=== PATIENT | female | born 1945 | race Caucasian/White ===

== ENCOUNTER 2025-03-09 16:39 | Inpatient (IN) | payer MEDICARE, SELFPAY ==
[2025-03-09 16:41] VITALS: BP 161/123; PULSE 103; RESP 18; TEMP 36.4; O2SAT 93
--- NOTE | 2025-03-09 17:27 | EKG12_ITS ---
Test Reason : Blood Pressure : */* mmHG Vent. Rate : 94 BPM Atrial Rate : 94 BPM P-R Int : 184 ms QRS Dur : 76 ms QT Int : 380 ms P-R-T Axes : 54 18 3 degrees QTcB Int : 475 ms Normal sinus rhythm Nonspecific T wave abnormality Abnormal ECG Confirmed by BAILEY ROCA, MARIBELL ([id number]), senior editor LIONEL ZAMUDIO ([id number]) on 03/10/2025 8:41:23 AM Referred By: Confirmed By: MARIBELL AVALOS MD
--- NOTE | 2025-03-09 17:27 | RAD_ITS ---
PROCEDURE: PELVIS 1 OR 2 VIEWS 03/09/2025 REASON FOR EXAM: INJURY/PAIN TECHNIQUE: 1 view(s) of the pelvis. COMPARISON: None FINDINGS: Lucency through the left femoral neck, concerning for a nondisplaced fracture. Mild degenerative changes. No suspicious lytic or blastic lesions. SI joints are unremarkable. RAD/Pelvis 1 or 2 Views IMPRESSION: Suspected nondisplaced left femoral neck fracture. Reading Location: [facility]
--- NOTE | 2025-03-09 17:27 | RAD_ITS ---
PROCEDURE: CHEST 1 VIEW (PORTABLE) 03/09/2025 REASON FOR EXAM: COUGH TECHNIQUE: Frontal view of the chest. COMPARISON: None FINDINGS: Hardware: None Heart: Heart size is mildly enlarged. Lungs: No focal consolidation. No suspicious pulmonary nodules. No right pleural effusion. Limited evaluation of the left costophrenic angle. No pneumothorax. Bones: Degenerative changes are identified within the thoracic spine. Other: RAD/Chest 1 View (Portable) IMPRESSION: No Acute Findings. Reading Location: [facility]
--- NOTE | 2025-03-09 17:43 | ED.VIS.LOWEX ---
HPI History of Present Illness HPI Narrative: Patient presents with left hip fracture that began after a fall 1 week ago. Patient states that she had outpatient x-rays which were negative. Patient states she has been having minimal weightbearing and had a follow-up CT scan of her hip. This showed a fracture. Patient states her primary care physician referred her to Dr. Stevens. He recommended coming to the hospital for admission so he can operate on her hip tomorrow. Patient denies any new injuries. Patient states her pain is very mild. Patient denies any paresthesias or weakness. Chief Complaint: Lower Extremity Injury Informant: patient Occured/Mechanism Mechanism/Context: Yes fall Onset/Context/Timing Onset: Weeks (1) Context: Sudden Onset Timing: Continuous Quality of Pain: Dull Location: Left hip Current Severity: Mild Worsened by: Nothing Relieved by: Nothing Associated Symptoms Associated Symptoms: Negative for Parasthesia, Weakness or Loss of Funtion [facility] Medical History Hypoglycemia Hypotension Home Medications ?Medication ?Instructions ?Recorded ?Last Taken ?Type calcium 600 mg-D3 20 mcg-magnesium 1 tab PO BID 03/09/25 03/09/25 History 50 mg-copper 1 [id number]-xyst tablet Allergy/AdvReac Type Severity Reaction Status Date / Time amoxicillin (From Amoxil) Allergy Severe Hives Verified 03/09/25 16:43 Social History Smoking Status: Never smoker ROS ROS ED Constitutional Constitutional ED: Denies chills or fever(s) Eyes Eyes: Denies blurry vision or change in vision ENT ENT ED: Denies rhinorrhea or sore throat Cardiovascular Cardiovascular: Denies chest pain or palpitations Respiratory/Chest Respiratory/Chest: Denies cough or dyspnea Gastrointestinal Gastrointestinal: Denies nausea or vomiting Genitourinary Genitourinary ED: Denies dysuria or hematuria Musculoskeletal Musculoskeletal: Denies back pain or neck pain Integumentary Denies abscess or rash Neurologic Neurologic: Denies headache(s) or weakness Allergic/Immunologic Allergic/Immunologic ED: Denies mouth swelling or urticaria EXAM Physical Exam Const Vital Signs: 03/09/25 16:41 03/09/25 19:19 Temperature 97.6 F L 98.1 F Temperature Source Oral Pulse Rate 103 H 85 Respiratory Rate 18 18 Blood Pressure 161/123 H 160/92 H Blood Pressure Mean 135 114 Pulse Ox 93 96 Oxygen Delivery Method Room Air Positive well nourished and well developed General Appearance ED: well developed and NAD HEENT Reports moist mucous membranes Neck full ROM and supple Resp normal respiratory effort and clear to auscultation bilaterally Cardio regular rate and regular rhythm GI non-tender and non-distended Palpation: soft Extremity Extremity Narrative: There is mild tenderness over the left hip. There is no deformity noted. There is no pain with internal or external rotation. Pedal pulses are equal bilaterally. Sensation was intact to light touch in all digits. Capillary refill was less than 2 seconds in all digits. Neuro oriented x3, CN's II-XII intact bilaterally, moves all extremities and no sensory deficits noted Sensorium / Orientation: alert Motor Exam: strength 5/5 throughout Psych mental status grossly normal MDM MDM MDM Narrative Medical decision making narrative: X-rays of the pelvis will be obtained to assess for pelvic fracture. Medical screening labs will be obtained to assess for medical clearance for surgery. EKG will be obtained to assess for cardiac dysrhythmia and cardiac ischemia. Chest x-ray will be obtained to assess for pneumonia, congestive heart failure, widened mediastinum, and pneumothorax. CBC will be obtained to assess for leukocytosis and anemia. Basic metabolic profile will be obtained to assess for electrolyte abnormality and renal function. PT with INR and PTT will be obtained to assess for coagulopathy. Urinalysis will be obtained to assess for urinary tract infection and hematuria. Lab Data Attestation: I reviewed the patient's lab results. Lab results narrative: CBC was reviewed and was essentially within normal limits. PT with INR and PTT were reviewed and were within normal limits. Basic metabolic profile was reviewed. BUN was slightly elevated at 21. Creatinine was normal at 0.99. Glucose was slightly elevated at 111. The remainder was within normal limits. Labs: Laboratory Results - last 24 hr 03/09/25 17:45 WBC 7.9 RBC 4.92 Hgb 15.4 H Hct 46.2 MCV 93.9 MCH 31.3 MCHC 33.3 RDW Std Deviation 47.8 H RDW Coeff of Kathy 13.9 Plt Count 230 MPV 10.5 Immature Gran % (Auto) 0.300 Neut % (Auto) 63.3 Lymph % (Auto) 26.9 [place] % (Auto) 7.3 Eos % (Auto) 1.4 Baso % (Auto) 0.8 Absolute Neuts (auto) 5.0 Absolute Lymphs (auto) 2.13 Nucleated RBC % 0 PT 13.0 INR 1.0 APTT 26.0 Sodium 138 Potassium 4.1 Chloride 102 Carbon Dioxide 23.4 Anion Gap 12 BUN 21 H Creatinine 0.99 Estim Creat Clear Calc 45.10 L Est GFR (MDRD) Non-Af 58 L BUN/Creatinine Ratio 21.5 H Glucose 111 H Calcium 10.0 Radiography Chest X-Ray - ED: 1 View, Read by ED Physician, Read by Radiologist and No Acute Disease Diagnostic Testing: Clinical Impression(s) from Imaging Studies Chest X-Ray 03/09/25 17:27 IMPRESSION: No Acute Findings. Reading Location: [facility] Pelvis X-Ray 03/09/25 17:27 IMPRESSION: Suspected nondisplaced left femoral neck fracture. Reading Location: [facility] Portable 1 view chest x-ray was obtained. On my independent interpretation, lung whiteside are clear. There is normal cardiac silhouette. Bony thorax is normal. There is no acute process noted. Radiologist also interpreted the x-ray and agrees. X-rays of the pelvis were obtained. There is 1 view. On my independent interpretation, there is a questionable fracture through the femoral neck. There is no displacement. Radiologist also interpreted the x-rays and agrees. EKG Initial EKG: Attestation: I personally reviewed and interpreted this EKG as follows: Interpretation: Sinus Rhythm (94) and Non-Specific ST Changes Comments: EKG was obtained. On my independent interpretation, it showed a normal sinus rhythm with a rate of 94. [place] interval, QRS interval, and QTc intervals were all normal. [place] was normal. There are nonspecific ST-T wave changes. Prior EKG tracings: not available for review Prior: No Prior Treatment and Re-Evaluation Narrative: Patient was ordered morphine but does not feel like she needs it at this time. This will be held. Case was discussed with the hospitalist. He will admit the patient to his service. Patient and spouse understood and were agreeable with the plan. All questions were answered. Discharge Plan Dx/Rx/DC Orders Clinical Impression: Fracture of hip, left, closed, Fall Disposition Disposition: Acute Care Hospital [facility]
[2025-03-09 17:48] VITALS: BMI 28.8
[2025-03-09 17:58] LABS: Absolute Lymphocyte Count 2.13 X10^3/uL (0.83-4.51); Basophil# 0.06 X10^3/uL; Basophil% 0.8 % (0-1); Eosinophil# 0.11 X10^3/uL; Eosinophils% 1.4 % (0-5); Hematocrit 46.2 % (37-47); Hemoglobin 15.4 g/dL (12.0-15.0); Lymphocyte # 2.13 X10^3/ul (0.83-4.51); Lymphocyte % 26.9 % (19-41); Mean Corp Hgb Conc 33.3 g/dL (32-36); Mean Corpuscular Hgb 31.3 pg (27.0-32.0); Mean Corpuscular Volume 93.9 fL (81-99); Mean Platelet Vol. 10.5 fl (6.2-12.0); Monocyte# 0.58 X10^3/uL; Monocyte% 7.3 % (0-10); NRBC Flagged by Analyzer 0 % (0-5); Neutrophil # 5.03 X10^3/uL (2.7-7.7); Neutrophil % 63.3 % (47-70); Platelet Count 230 K/mm3 (150-450); RBC Distribution Width CV 13.9 % (11.6-14.6); RBC Distribution Width SD 47.8 fl (35.1-43.9); Red Blood Count 4.92 M/mm3 (4.2-5.4); White Blood Count 7.9 K/mm3 (4.4-11.0)
[2025-03-09 18:35] LABS: Anion Gap 12 (5-15); BUN 21 mg/dL (4-19); BUN/Creat Ratio 21.5 RATIO (10-20); Carbon Dioxide 23.4 mmol/L (21.0-32.0); Chloride 102 mmol/L (98-108); Creatinine, Serum 0.99 mg/dL (0.70-1.20); EST Glomerular Filtration Rate 58 (>60); Glucose 111 mg/dL (70-99); Potassium 4.1 mmol/L (3.3-5.1); Sodium Level 138 mmol/L (133-145)
[2025-03-09 19:19] VITALS: BP 160/92; PULSE 85; RESP 18; TEMP 36.7; O2SAT 96
--- NOTE | 2025-03-09 19:48 | HP.PCM.HOS_ITS ---
HPI - General General Date of Admission: 03/09/25 HPI Narrative INGA FELIZ, is a 79 F who presents to the hospital from the orthopedic surgeons office for operative repair of her left femur fracture tomorrow. She fell at her doctor's office on 03/01/2025 while she was walking and at the time they obtained x-rays that did not demonstrate a fracture however she had continued pain to the area CT scan on Friday. On Friday it was read as a left femur fracture in the ball of her femur so she was referred to orthopedic surgery for evaluation. She saw the orthopedic surgeon in the office today who recommended her to come to the ER for admission and plan for operative repair tomorrow. [facility] Medical History (Updated 03/09/25 @ 17:[address] Joni Cox DO) Hypoglycemia Hypotension Home Medications ?Medication ?Instructions ?Recorded ?Last Taken ?Type calcium 600 mg-D3 20 mcg-magnesium 1 tab PO BID 03/09/25 History 50 mg-copper 1 wo-govy-gasc tablet Allergy/AdvReac Type Severity Reaction Status Date / Time amoxicillin (From Amoxil) Allergy Severe Hives Verified 03/09/25 16:43 Family History (Updated 03/09/25 @ 19:[address] Rell Suarez MD) Other Heart disease Surgical History (Updated 03/09/25 @ 19:[address] Rell Suarez MD) H/O tubal ligation Social History Smoking Status: Never smoker ROS Constitutional Constitutional: Denies chills, fatigue, fever(s) or malaise Eyes Eyes: Denies blurry vision ENT HEENT: Denies headache(s) or nasal discharge Cardiovascular Cardiovascular: Denies chest pain, dyspnea on exertion or syncope Respiratory/Chest Respiratory/Chest: Denies cough, shortness of breath at rest or shortness of breath with exertion Gastrointestinal Gastrointestinal: Denies constipation, diarrhea, nausea or vomiting Genitourinary Genitourinary: Denies dysuria Musculoskeletal Musculoskeletal: Reports joint pain Neurologic Neurologic: Denies focal weakness, numbness or tremor(s) Psychiatric Psychiatric: Denies anxiety or depression Vital Signs Vital Signs Vital Signs: 03/09/25 16:41 03/09/25 19:19 Temperature 97.6 F L 98.1 F Temperature Source Oral Pulse Rate 103 H 85 Respiratory Rate 18 18 Blood Pressure 161/123 H 160/92 H Blood Pressure Mean 135 114 Pulse Ox 93 96 Oxygen Delivery Method Room Air Weight Weight: 162 lb 14.746 oz Body Mass Index (BMI) 28.8 Physical Exam Narrative General: Alert, Oriented x3, Cooperative, No apparent distress HEENT: Atraumatic, PERRLA, EOMI, Normocephalic Oral: Moist Mucosa Neck: Supple, No JVD Lungs: Clear to auscultation, Normal air movement, No rhonchi, No wheeze, No rales Cardiovascular: Regular rate, Regular Rhythm, Normal S1, Normal S2, No murmurs Abdomen: Soft, Non Tender, Non-Distended, No Hepato-splenomegaly Extremities: No edema, Capillary Refill Less than 3 Seconds Skin: No rashes, No breakdown Musculoskeletal: Tenderness to palpation of left hip Neurological: No focal neurological deficits, Motor Exam 5/5 strength throughout, Sensory exam intact to light touch and pain Psych/Mental Status: Normal Affect, Appropriate Results Lab / Micro Data 03/09/25 17:45 03/09/25 17:45 Labs: Laboratory Results - last 24 hr 03/09/25 17:45: WBC 7.9, RBC 4.92, Hgb 15.4 H, Hct 46.2, MCV 93.9, MCH 31.3, MCHC 33.3, RDW Std Deviation 47.8 H, RDW Coeff of Kathy 13.9, Plt Count 230, MPV 10.5, Immature Gran % (Auto) 0.300, Neut % (Auto) 63.3, Lymph % (Auto) 26.9, [place] % (Auto) 7.3, Eos % (Auto) 1.4, Baso % (Auto) 0.8, Absolute Neuts (auto) 5.0, Absolute Lymphs (auto) 2.13, Nucleated RBC % 0, PT 13.0, INR 1.0, APTT 26.0, Sodium 138, Potassium 4.1, Chloride 102, Carbon Dioxide 23.4, Anion Gap 12, BUN 21 H, Creatinine 0.99, Estim Creat Clear Calc 45.10 L, Est GFR (MDRD) Non-Af 58 L, BUN/Creatinine Ratio 21.5 H, Glucose 111 H, Calcium 10.0 Imaging Radiology Impression Chest X-Ray 03/09/25 17:27 IMPRESSION: No Acute Findings. Reading Location: [facility] Pelvis X-Ray 03/09/25 17:27 IMPRESSION: Suspected nondisplaced left femoral neck fracture. Reading Location: [facility] Assessment & Plan Assessment/Plan (1) Fracture of hip, left, closed: PLAN: Plan 1. Mechanical fall resulting in a left femoral neck fracture nondisplaced ? Plan for operative repair tomorrow ? N.p.o. after midnight ? Pain management ? Blood pressures are slightly elevated but this is likely due to pain will monitor and potentially start medication on discharge if indicated ? Will check a vitamin D level ? She has no other medical history to manage ? Consult to Ortho DVT: SCDs 75 minutes was spent on direct patient care, including documentation as well as chart review and collaboration with colleagues Charges/Coding Visit Charges Inpatient E&M: 05033 Init Hosp L3
--- NOTE | 2025-03-09 20:31 | CASEMGMT ---
Care Management Face to Face with patient for initial transition planning/care coordination assessment in the ED.? 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 Patient alert and oriented. Patient willing to participate in assessment and is able to answer all questions appropriately.? Care providers, pharmacy, and demographics verified. Admitting Diagnosis: hip fx Other diagnosis history: hypoglycemia, hypotension PCP: Debora Specialists: ?none Preferred Pharmacy: [facility] Insurance: [facility] Prescription Benefit: ?yes Living Will/HPOA: ?completed LNOK: Living Arrangements: ?Lives with in first floor apartment, one floor.? One step to enter. Patient had been independent with ADLs and IADLs Transportation: ? drives DME: walker, bedside commode HHC: none SNF/Rehab: none Community Resources: ?Their jainism is providing meals 3 x per week Behavioral Health History: none Patient goals: Patient wishes to discharge home, denies need for home health care at this time. Patient denies any further needs or concerns at this time. Disposition Plan: admission to acute; RN CM/SW to follow for discharge planning needs that may arise. Ludmila Roman, PULPWOOD DEALER, WATER RESOURCE SPECIALIST
[2025-03-09 21:34] VITALS: BP 151/94; PULSE 75; RESP 16; TEMP 36.7; O2SAT 98
--- NOTE | 2025-03-09 22:26 | NURSING ---
patient wants to sign consent after talking to Dr. Stevens on .
[2025-03-10] VITALS (17 sets, daily range): BP systolic 104–155; BP diastolic 43–99; PULSE 80–99; RESP 16–20; TEMP 36.3–36.9; O2SAT 95–100
[2025-03-10 04:56] LABS: Absolute Lymphocyte Count 2.42 X10^3/uL (0.83-4.51); Absolute Neutrophil Count 4.2 X10^3/uL (2.0-7.7); Basophil# 0.05 X10^3/uL; Basophil% 0.7 % (0-1); Eosinophil# 0.16 X10^3/uL; Eosinophils% 2.1 % (0-5); Hematocrit 42.9 % (37-47); Hemoglobin 14.1 g/dL (12.0-15.0); Lymphocyte # 2.42 X10^3/ul (0.83-4.51); Lymphocyte % 31.8 % (19-41); Mean Corp Hgb Conc 32.9 g/dL (32-36); Mean Corpuscular Hgb 31.1 pg (27.0-32.0); Mean Corpuscular Volume 94.5 fL (81-99); Mean Platelet Vol. 10.5 fl (6.2-12.0); Monocyte# 0.75 X10^3/uL; Monocyte% 9.9 % (0-10); NRBC Flagged by Analyzer 0 % (0-5); Neutrophil # 4.19 X10^3/uL (2.7-7.7); Neutrophil % 55.1 % (47-70); Platelet Count 205 K/mm3 (150-450); Red Blood Count 4.54 M/mm3 (4.2-5.4); White Blood Count 7.6 K/mm3 (4.4-11.0)
[2025-03-10] MEDS: 0.9% Saline Lock 10 ML Syringe IV ×2 (06:08→09:01)
[2025-03-10 06:14] LABS: Anion Gap 12 (5-15); BUN 21 mg/dL (4-19); BUN/Creat Ratio 22.2 RATIO (10-20); Calcium,Total 9.8 mg/dL (7.6-11.0); Carbon Dioxide 25.1 mmol/L (21.0-32.0); Chloride 105 mmol/L (98-108); Creatinine, Serum 0.96 mg/dL (0.70-1.20); EST Glomerular Filtration Rate 61 (>60); Estimated Creatinine Clearance 45.64 ml/min (50-250); Glucose 98 mg/dL (70-99); Potassium 4.4 mmol/L (3.3-5.1); Sodium Level 142 mmol/L (133-145)
--- NOTE | 2025-03-10 06:57 | PN.HOSP_ITS ---
Reason for Visit Reason for Visit: Left hip pain Subjective Subjective Patient is a 79-year-old female who presented to the emergency department from [facility] at the recommendation of her orthopedic surgeon. She evidently fell at the doctor's office on 03/01/2025 as an outpatient while she was walking. X-rays were obtained at the time due to hip pain but no acute fractures identified. She continued to have pain in the area and CT of the hip was performed last Friday. On Friday was read as a left femur fracture and she was referred to orthopedic surgery for evaluation. She was seen by orthopedic surgeon in the office on the day of presentation he instructed to come to the emergency department. Vital signs on presentation showed temperature of 97.6, heart rate 103, respiratory 18, blood pressure was initially 160/123 however when acuity decreased and pain was better controlled her blood pressure is better controlled. Pulse ox was 93 to 96% on room air. CBC was overtly unremarkable. Coags are normal. Chemistry panel is unremarkable. X-ray showed nondisplaced fracture of the left femoral neck. Plan was to take her to the OR later today for surgical intervention. Patient intends to go home at the time of discharge. She states her pain is currently well-controlled. Objective Data Objective Data Vital Signs: Vital Signs Temp Pulse Resp BP Pulse Ox O2 Del Method 98 F 82 18 155/72 H 98 Room Air 03/10/25 04:57 03/10/25 04:57 03/10/25 04:57 03/10/25 04:57 03/10/25 04:57 03/10/25 04:57 Oxygen Delivery Method Room Air Weight: 74.5 kg Body Mass Index (BMI) 30.0 Intake & Output: Intake and Output for Last 24 Hours 03/08/25 03/09/25 03/10/25 23:59 23:59 23:59 Intake Total 150 / 150 Output Total 450 / 450 Balance 150 / 150 -450 / -450 Lab / Micro Data 03/10/25 04:17 03/10/25 04:17 Labs: Laboratory Results - last 24 hr 03/09/25 17:45: WBC 7.9, RBC 4.92, Hgb 15.4 H, Hct 46.2, MCV 93.9, MCH 31.3, MCHC 33.3, RDW Std Deviation 47.8 H, RDW Coeff of Kathy 13.9, Plt Count 230, MPV 10.5, Immature Gran % (Auto) 0.300, Neut % (Auto) 63.3, Lymph % (Auto) 26.9, [place] % (Auto) 7.3, Eos % (Auto) 1.4, Baso % (Auto) 0.8, Absolute Neuts (auto) 5.0, Absolute Lymphs (auto) 2.13, Nucleated RBC % 0, PT 13.0, INR 1.0, APTT 26.0, Sodium 138, Potassium 4.1, Chloride 102, Carbon Dioxide 23.4, Anion Gap 12, BUN 21 H, Creatinine 0.99, Estim Creat Clear Calc 45.10 L, Est GFR (MDRD) Non-Af 58 L, BUN/Creatinine Ratio 21.5 H, Glucose 111 H, Calcium 10.0 03/10/25 04:17: WBC 7.6, RBC 4.54, Hgb 14.1, Hct 42.9, MCV 94.5, MCH 31.1, MCHC 32.9, RDW Std Deviation 48.0 H, RDW Coeff of Kathy 14.0, Plt Count 205, MPV 10.5, Immature Gran % (Auto) 0.400, Neut % (Auto) 55.1, Lymph % (Auto) 31.8, [place] % (Auto) 9.9, Eos % (Auto) 2.1, Baso % (Auto) 0.7, Absolute Neuts (auto) 4.2, Absolute Lymphs (auto) 2.42, Nucleated RBC % 0, Sodium 142, Potassium 4.4, Chloride 105, Carbon Dioxide 25.1, Anion Gap 12, BUN 21 H, Creatinine 0.96, E stim Creat Clear Calc 45.64 L, Est GFR (MDRD) Non-Af 61, BUN/Creatinine Ratio 22.2 H, Glucose 98, Calcium 9.8, Blood Type A NEGATIVE, Antibody Screen NEGATIVE Radiography Diagnostic Testing: Radiology Impression Chest X-Ray 03/09/25 17:27 IMPRESSION: No Acute Findings. Reading Location: [facility] Pelvis X-Ray 03/09/25 17:27 IMPRESSION: Suspected nondisplaced left femoral neck fracture. [facility] Physical Exam Const alert, oriented x3, no apparent distress, healthy appearing and well nourished; Negative for average body habitus Constitutional Narrative: Obese, elderly, white female, sitting up in bed, at bedside, appears comfortable, nontoxic, HEENT head/scalp atraumatic and moist oral mucous membranes Head and Scalp: normocephalic Eyes conjunctivae normal; Negative for EOMs intact bilaterally Eyes Narrative: Right eye deviation medially Resp normal respiratory effort, no retractions, no use of accessory muscles and clear to auscultation bilaterally Auscultation: Negative for rales, rhonchi or wheezes Cardio regular rate, regular rhythm, S1 normal heart sound, S2 normal heart sound, no murmurs, no rub, no gallops and no clicks GI normal to inspection, nondistended, normoactive bowel sounds, soft to palpation and non-tender Extremity no clubbing, cyanosis or edema Extremity Narrative: Pedal pulses are 2+ Neuro oriented x3 and no focal motor deficits Speech: speech normal Psych affect normal Psych Narrative: Extremely pleasant, interacts appropriately Assessment & Plan Assessment/Plan (1) Subcapital fracture of left femur: (2) Fall: (3) Vitamin D deficiency: PLAN: Plan Left femoral neck fracture-nondisplaced secondary to mechanical fall -Plan is for OR later today -Vitamin D level is low -Continue Tylenol 1 g every 8 hours scheduled -Will give as needed Ultram -Morphine for breakthrough -Scheduled bowel regimen -PT/OT postoperatively -Weightbearing as tolerated -Start subcu enoxaparin for now and plan to discharge on 81 mg of aspirin for 4 weeks -Outpatient follow-up in 2 weeks for wound check Vitamin D deficiency -Vitamin D level was less than 30 -Start ergocalciferol 50,000 units daily x 7 weeks Obesity -BMI 30 -Complicates treatment, prognosis, outcomes DVT prophylaxis -Enoxaparin 40 subcu with plans for aspirin 81 mg daily discharge CODE STATUS -DNR CCA with no intubation Charges/Coding Visit Charges Inpatient E&M: 51343 Subs Hosp L2
[2025-03-10 08:37] LABS: Bedside Glucose 109 mg/dL (74-106)
[2025-03-10] MEDS: Lactated Ringers 1,000 ML 75 ML IV (09:01)
[2025-03-10 10:09] LABS: Vitamin D,25 Hydroxy 24.4 ng/mL (30-100)
[2025-03-10] MEDS: 0.9% Normal Saline (1000mL) 1,000 ML 15 ML IV (13:46)
--- NOTE | 2025-03-10 13:56 | CHAPLAIN ---
Type of Pastoral Visit _x__ Initial Visit ___ Follow-up Visit ___ On-call Visit ___ General Patient Visit ___ Spiritual Assessment ___ Family Conference ___ Bereavement ___ Rapid Response ___ Code Blue ___ Other (describe below) Pastoral Care Referral From _x__ Patient ___ Family ___ Nurse ___ Physician ___ Product Craftsman ___ Assistant Merchandise Manager ___ Other (describe below) Sacrament/Intervention _x__ Active listening ___ Anointing ___ Islam ___ Bereavement ___ Communion _x__ [place] exploration ___ ___ Life review _x__ Prayer ___ Reconciliation ___ Sacrament of Sick ___ Supportive presence ___ Wedding ___ Other (describe below) Pastoral Comments patient will be going to surgery soon; spouse is with her; pt is eager to tell her story of how she got fracture and what has happened since; pt is a believer and desires to have prayer and spiritual care while in the hospital; offer of support to as well
--- NOTE | 2025-03-10 13:57 | PRE.ANES_ITS ---
ASA Classification* ASA Classification ASA Classification: 2 Assessment & Plan Anesthesia* Anesthesia Assessment Anesthesia Assessment: Discussed sedation and/or anesthesia options, risks, benefits, and alternatives with patient/parents/legal guardian/POA. Questions invited. The patient/parents/legal guardian/POA seems to understand and agrees to proceed with anesthesia plan. Reviewed the physical assessment, medical history, allergy history and patient home medications list prior to surgery/procedure/anesthetic and documented any changes. Performed airway and anesthesia risk assessments. Anesthesia Type Anesthesia Type: General History Source History Obtained from:: Patient and Chart Anesthesia Focused Assessment* Temperature: 98.4 F Pulse Rate: 99 Blood Pressure: 150/93 Respiratory Rate: 20 Pulse Ox: 99 Oxygen Delivery Method: Room Air Airway Assessment Mouth opens: >3 cm Mallampati Score: I Teeth Condition: Dentures (Patient has upper and lower dentures. They are out.) Neck Range of motion (ROM): Full ROM Focused Labs Anesthesia Preop lab: CBC WBC 7.6 K/mm3 (4.4-11.0) 03/10/25 04:17 03/10/25 RBC 4.54 M/mm3 (4.2-5.4) 03/10/25 04:17 03/10/25 Hgb 14.1 g/dL (12.0-15.0) 03/10/25 04:17 03/10/25 Hct 42.9 % (37-47) 03/10/25 04:17 03/10/25 Plt Count 205 K/mm3 (150-450) 03/10/25 04:17 03/10/25 CHEMISTRY Potassium 4.4 mmol/L (3.3-5.1) 03/10/25 04:17 03/10/25 Sodium 142 mmol/L (133-145) 03/10/25 04:17 03/10/25 BUN 21 mg/dL (4-19) H 03/10/25 04:17 03/10/25 Creatinine 0.96 mg/dL (0.70-1.20) 03/10/25 04:17 03/10/25 Glucose 98 mg/dL (70-99) 03/10/25 04:17 03/10/25 POC Glucose 109 mg/dL (74-106) H 03/10/25 08:18 03/10/25 COAG PT 13.0 SECONDS (11.7-14.9) 03/09/25 17:45 Pre-Assessment Diagnosis/Proposed Procedure Planned Operative Procedure(s): Left hip closed reduction percutaneous pinning. 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 When Was Last Pacemaker Check QUESTION #4 FULL TEXT: You/Your Family Experience fever (hyperthermia) with Anesthesia Last Oral Intake Last Oral intake: Last Oral Intake NPO since 00:00 03/10/25 12:00 Meds taken in AM with sips of No 03/10/25 12:00 water? Meds patient instructed to take am of surgery PONV PONV - industrial robotics mechanic: PONV - industrial robotics mechanic Female HX of Motion Sickness HX of N/V After Surgery Non-Smoker Duration of Surgery greater than 60 minutes Number of Risk Factors PONV Score Height & Weight Height & Weight: Anesthesia: Height & Weight Height 5 ft 2 in 03/10/25 12:00 Weight: 74.5 kg 03/10/25 12:00 Body Mass Index (BMI) 30.0 03/10/25 12:00 Respiratory Assessment Respiratory Assessment - industrial robotics mechanic: Respiratory Tract Infection Hx - industrial robotics mechanic Hx Respiratory Tract Infection No 03/09/25 21:36 STOP Sleep Apnea STOP Sleep Apnea - industrial robotics mechanic: STOP Sleep Apnea - industrial robotics mechanic Hx Hypertension Yes: not currently taking 03/09/25 20:36 any meds for HTN at this time Hx Sleep Apnea No 03/09/25 20:36 CPAP BIPAP Do you snore loudly (louder No 03/09/25 20:36 than talking or can be heard Do you often feel tired/ Yes 03/09/25 20:36 fatigued/ sleepy during daytime? Has anyone observed you stop No 03/09/25 20:36 breathing during sleep? STOP Results Positive 03/09/25 20:36 QUESTION #5 FULL TEXT : Do you snore loudly (louder than talking or can be heard through closed doors)? Tobacco Use History Tobacco Use History - industrial robotics mechanic: Tobacco Use History - industrial robotics mechanic Tobacco Use Smoking Status Never smoker 03/09/25 20:36 Hx Tobacco Use No 03/09/25 20:36 Years Smoking Packs Smoked per Day Smoking Cessation Date was within the last 15 years Hx Smoking Cessation Date Hx Smoking Cessation Counseling Hematologic Medial History Hematologic Hx - industrial robotics mechanic: Hematologic Medical Hx - vest busheler Hx of Blood Transfusion No 03/09/25 20:36 Hx of Transfusion in last 3 No 03/09/25 20:36 Months Date of Last Transfusion (if within last 3 months) Ever experience any problems No 03/09/25 20:36 with transfusion(s)? Specify any problems Hx of Preganancy in last 3 No 03/09/25 20:36 Months Nurse Filling Out Transfusion EVIZZO 03/09/25 20:36 & Questions: Date: 03/09/25 03/09/25 20:36 Time: 20:44 03/09/25 20:36 Patient unable to answer at this time (ie. confused, unrespo /Reproduction History /Reproductive History - industrial robotics mechanic: /Reproductive Hx- industrial robotics mechanic Hx Now No 03/09/25 21:36 Gestational Age (in weeks): EDC: Hx Hx Para Hx Section SAB No 03/09/25 21:36 Active Medications Active Medications: Current Medications Generic Name Dose Route Start Last Admin Trade Name Freq PRN Reason Stop Dose Admin Sodium Chloride 100 mls @ 15 mls/hr 03/09/25 20:38 IV .Q6H40M PRN Saline Flush Sodium Chloride 100 mls @ 15 mls/hr 03/09/25 20:38 IV .Q6H40M PRN Additional IVPB Infusion Lactated Ringer's 1,000 mls @ 75 mls/hr 03/10/25 08:30 03/10/25 09:01 IV 03/10/25 21:49 75 mls/hr .[id number] YOLANDA Administration Sodium Chloride 1,000 mls @ 15 mls/hr 03/10/25 13:35 03/10/25 13:46 IV 15 mls/hr .Q48H YOLANDA Administration Morphine Sulfate 2 mg 03/09/25 20:35 Morphine 2 Mg/Ml Syringe IV Q3H PRN PRN Pain Score 6-10 Oxycodone HCl 5 mg 03/09/25 20:35 Oxycodone 5 Mg Tablet PO Q4H PRN PRN Pain Score 4-10 or Pre PT/OT Sodium Chloride 10 - 40 ml 03/09/25 20:38 03/10/25 09:01 0.9% Saline Lock 10 Ml Syringe IV 10 ml UD PRN Administration SALINE FLUSH PFSH Medical History (Updated 03/09/25 @ 20:53 by Kimberly Yan) Hypertension Hypoglycemia Hypotension Home Medications ?Medication ?Instructions ?Recorded ?Last Taken ?Type calcium 600 mg-D3 20 mcg-magnesium 1 tab PO BID 03/09/25 History 50 mg-copper 1 [id number] tablet Allergy/AdvReac Type Severity Reaction Status Date / Time amoxicillin (From Amoxil) Allergy Severe Hives Verified 03/09/25 16:43 Family History (Updated 03/09/25 @ 19:[address] Rell Suarez MD) Other Heart disease Surgical History H/O tubal ligation Social History Smoking Status: Never smoker Review of Systems (Anesthesia) ROS Narrative System reviewed and no additional complaints, except as documented.
--- NOTE | 2025-03-10 14:52 | CON.PCM.OR_ITS ---
HPI Consult Data Date of Consult: 03/10/25 HPI Narrative Reason for Consultation: Left hip pain HPI Narrative: INGA FELIZ, is a 79 F who presents with left hip subcapital femoral neck fracture. Patient was seen and evaluated in the office yesterday. After thorough evaluation of the patient was noted that her mobility is significant limited. She did have a fall a week ago and had CT scan on Friday of last week with results read on Friday indicating an impacted femoral neck fracture with minimal displacement. Patient's PCP sent her to my office yesterday where we evaluated her. Patient was noted to have limited mobility. She was using a walker. Having pain with ambulation. Using a bedside commode. Sleeping in the same chair she was sitting in all day. Based on her limited mobility her continued pain imaging consistent with a subcapital femoral neck fracture we did recommend she proceed to the emergency department for further evaluation and admission to the hospital or we can proceed with surgical intervention. Patient's was with her yesterday and agreed. Patient was ambulating well with occasional use of walker or cane prior to her recent fall. Her fall occurred 1 week ago yesterday. FOR[facility]LY [facility], [facility] Medical History Hypertension Hypoglycemia Hypotension Home Medications ?Medication ?Instructions ?Recorded ?Last Taken ?Type calcium 600 mg-D3 20 mcg-magnesium 1 tab PO BID 03/09/25 History 50 mg-copper 1 [id number] tablet Allergy/AdvReac Type Severity Reaction Status Date / Time amoxicillin (From Amoxil) Allergy Severe Hives Verified 03/09/25 16:43 Family History Other Heart disease Surgical History H/O tubal ligation Social History Smoking Status: Never smoker ROS ROS Narrative 14 point review of systems outside of what is mentioned in the HPI is negative Vital Signs Vital Signs Vital Signs: 03/09/25 16:41 03/09/25 19:19 03/09/25 21:34 Temperature 97.6 F L 98.1 F 98.1 F Temperature Source Oral Oral Pulse Rate 103 H 85 75 Respiratory Rate 18 18 16 Respiratory Effort Respiratory Depth Respiratory Pattern Blood Pressure 161/123 H 160/92 H 151/94 H Blood Pressure Mean 135 114 113 Blood Pressure Source Monitor Blood Pressure Position Semi-Fowlers Blood Pressure Location Right Arm Pulse Ox 93 96 98 Oxygen Delivery Method Room Air Room Air 03/09/25 22:31 03/10/25 04:57 03/10/25 12:00 Temperature 98 F 98.4 F Temperature Source Oral Oral Pulse Rate 82 99 Respiratory Rate 18 20 H Respiratory Effort Normal Respiratory Depth Normal Respiratory Pattern Normal Blood Pressure 155/72 H 150/93 H Blood Pressure Mean 99 112 Blood Pressure Source Monitor Monitor Blood Pressure Position Semi-Fowlers Sitting Blood Pressure Location Right Arm Right Arm Pulse Ox 98 99 Oxygen Delivery Method Room Air Room Air Room Air 03/10/25 14:03 Temperature 98.4 F Temperature Source Pulse Rate 99 Respiratory Rate 20 H Respiratory Effort Respiratory Depth Respiratory Pattern Blood Pressure 150/93 H Blood Pressure Mean Blood Pressure Source Blood Pressure Position Blood Pressure Location Pulse Ox 99 Oxygen Delivery Method Room Air Weight Weight: 164 lb 3.91 oz Body Mass Index (BMI) 30.0 Physical Exam Const alert and oriented x3 HEENT normocephalic Eyes PERRL Neck no JVD Resp normal respiratory effort Cardio Cardio Narrative: Regular pulse rate distal extremity GI non-distended Extremity Extremity Narrative: Left lower extremity: Positive logroll. Regular leg length. Neurovascular intact distally. Unable to bear weight on that side. Sensations intact light touch distally saphenous, sural, superficial peroneal, deep radial and tibial nerve distributions. Positive flexion Kirk plantarflexion. Skin no wounds Neuro CN's II-XII intact bilaterally Psych affect normal Medical Records Data Attestation: I reviewed the patient's medical records Lab / Micro Data 03/10/25 04:17 03/10/25 04:17 Labs: Laboratory Results - last 24 hr 03/09/25 17:45: WBC 7.9, RBC 4.92, Hgb 15.4 H, Hct 46.2, MCV 93.9, MCH 31.3, MCHC 33.3, RDW Std Deviation 47.8 H, RDW Coeff of Kathy 13.9, Plt Count 230, MPV 10.5, Immature Gran % (Auto) 0.300, Neut % (Auto) 63.3, Lymph % (Auto) 26.9, [place] % (Auto) 7.3, Eos % (Auto) 1.4, Baso % (Auto) 0.8, Absolute Neuts (auto) 5.0, Absolute Lymphs (auto) 2.13, Nucleated RBC % 0, PT 13.0, INR 1.0, APTT 26.0, Sodium 138, Potassium 4.1, Chloride 102, Carbon Dioxide 23.4, Anion Gap 12, BUN 21 H, Creatinine 0.99, Estim Creat Clear Calc 45.10 L, Est GFR (MDRD) Non-Af 58 L, BUN/Creatinine Ratio 21.5 H, Glucose 111 H, Calcium 10.0 03/10/25 04:17: WBC 7.6, RBC 4.54, Hgb 14.1, Hct 42.9, MCV 94.5, MCH 31.1, MCHC 32.9, RDW Std Deviation 48.0 H, RDW Coeff of Kathy 14.0, Plt Count 205, MPV 10.5, Immature Gran % (Auto) 0.400, Neut % (Auto) 55.1, Lymph % (Auto) 31.8, [place] % (Auto) 9.9, Eos % (Auto) 2.1, Baso % (Auto) 0.7, Absolute Neuts (auto) 4.2, Absolute Lymphs (auto) 2.42, Nucleated RBC % 0, Sodium 142, Potassium 4.4, Chloride 105, Carbon Dioxide 25.1, Anion Gap 12, BUN 21 H, Creatinine 0.96, E stim Creat Clear Calc 45.64 L, Est GFR (MDRD) Non-Af 61, BUN/Creatinine Ratio 22.2 H, Glucose 98, Calcium 9.8, Vitamin D 25-Hydroxy 24.4 L, Blood Type A NEGATIVE, Antibody Screen NEGATIVE 03/10/25 08:18: POC Glucose 109 H Imaging Radiology Impression Chest X-Ray 03/09/25 17:27 IMPRESSION: No Acute Findings. Reading Location: [facility] Pelvis X-Ray 03/09/25 17:27 IMPRESSION: Suspected nondisplaced left femoral neck fracture. Reading Location: [facility] Outside x-rays and CT scan from another hospital confirm the suspected subcapital femoral neck fracture Assessment & Plan Assessment/Plan (1) Subcapital fracture of left femur: PLAN: Patient was seen and evaluated yesterday in the office. Treatment options including operative and nonoperative intervention were discussed the patient risk and benefits of procedure were discussed the patient as well. Patient's is at bedside again today. Risk and benefits previously discussed include but are not to blood loss, DVTs, PEs, neurovascular is complex, and risk of anesthesia is less like. We also discussed nonunion, malunion as well as avascular necrosis. Patient demonstrated understanding wish to proceed today. Patient is currently NPO. Antibiotics ordered on-call to the operating room. Patient has been ready for surgery by the medicine team at this time. Will proceed with surgery this afternoon.
[2025-03-10] MEDS: Cefazolin 2 GM in Syringe IV (15:08)
--- NOTE | 2025-03-10 15:15 | RAD_ITS ---
EXAM: XR Left Hip With Pelvis When Performed, 1 View CLINICAL INDICATION: HIP PINNING TECHNIQUE: Frontal view of the left hip with pelvis when performed. COMPARISON: No relevant prior studies available. FINDINGS: BONES/JOINTS: Unremarkable. No acute fracture. No dislocation. SOFT TISSUES: Unremarkable. OTHER FINDINGS: 2 fluoroscopic spot images. Total fluoroscopy time 59.9 seconds. Total radiation dose 10.91 mGy. RAD/Hip Min 2 Views (Portable) IMPRESSION: Fluoroscopic images were used intraoperatively. Please refer to the operative note for further details. Reading Location[facility]
--- NOTE | 2025-03-10 16:12 | PCM.POST.ANE ---
Anesthesia: Postop Eval I Current Vital Signs Temperature: 97.4 F Pulse Rate: 88 Blood Pressure: 140/59 Respiratory Rate: 16 Pulse Ox: 100 Oxygen Delivery Method: Room Air Assessment Airway patent: Yes Spontaneous unlabored respirations: Yes Mental status: Awake and Calm nausea: No Vomiting: No Anesthesia Complication: No Fluid Hydration Crystalloid volume administer (ml): 1,000 Total IV fluid infused: 1,000 Progress Note Anesthesia document: Postop Eval 1 completed: Yes
--- NOTE | 2025-03-10 16:17 | OP.PCM_ITS ---
Operative Report (Standard) Operative Information Date of Procedure: 03/10/25 Pre-Operative Diagnosis: Left hip subcapital femoral neck fracture Post-Operative Diagnosis: Left hip subcapital femoral neck fracture Surgery/Procedure Performed: Left hip closed reduction percutaneous pinning pet adoption counselor: No Type of Anesthesia: General RN Documented Start/Stop Times: Operation Date: 03/10/25 08:00 Case Time Into Pre-Op 03/10/25 13:33 Anesthesia Start 03/10/25 15:01 Into Room 03/10/25 15:01 Procedure Start 03/10/25 15:33 Procedure End 03/10/25 15:56 Anesthesia End 03/10/25 16:08 Into Recovery 03/10/25 16:08 Out of Room 03/10/25 16:08 Procedure Start Time: 15:33 Procedure Stop Time: 15:56 Select all DRAINS/GRAFTS/IMPLANTS that apply: None and Prosthetic device Prosthetic device details: 3 [place] 6.5 cannulated screws, 85 mm, 80 mm, 80 mm Special Medications: Ancef Estimated Blood Loss: 75 mL Fluids Replaced: 1000 mL Specimen collected: No Description of surgery: On the date of procedure patient's left lower extremity is was marked in the preoperative area. The patient was then taken back to the operating room where they were placed on the fracture table in the supine position. All bony prominences were identified a well-padded. Anesthesia assumed control of the C- spine and airway and remained controlled throughout the remainder of the procedure. A perineal post was placed and the pts legs were positioned for appropriate fluoroscopic views. The left lower extremity was prepped in a sterile fashion using chlorhexidine. The surgeon scrubbed at this time. Upon reentering the room the left extremity was draped in a standard orthopedic fashion. A timeout was then called and everyone agreed upon the side, the site, the procedure to be performed, patient's identity and antibiotics given. Fluoroscopy was used to verify the starting position of the initial pin which was above the level of the lesser trochanter. The initial pin was inserted percutaneously placed and the pin services delivery driver was used to drive the inferior pin using fluoroscopic guidance into the appropriate position. The appropriate position was verified on the AP we then confirmed it on the lateral. Once we're happy with the position of our initial pin an incision was made in line with the pin and the parallel pin guide were used to place the 2 superior pins along the anterior and posterior cortex of the femoral neck. Once all 3 pins were placed just beneath the subchondral bone of the femoral head the depth gauge was used to measure the length. The inferior screw was 80 mm, the anterior-superior screws was 85 mm and the posterior-superior screws was 80 mm . The drill was then used to perforate the lateral cortex. All 3 screws were then placed under fluoroscopic guidance and final tightening was done by hand. Final x-rays were then taken to verify the position of the screws and the final reduction. Copious irrigation was then used to irrigate out the wound. The wound was closed using 2-0 Vicryl and 4-0 Monocryl tied with a knot. A sterile dressing was placed with Xeroform. Patient was then awakened by anesthesia and transferred to the PACU for recovery. Post op plan PT: WBAT DVT ppx: ASA 81mg for 4 weeks recommended upon discharge Follow up: 2 weeks for wound check Surgical Findings: Stable will reduce to Complications Complications: No Admit VTE Documentation VTE Present on Admission: No VTE Mechan Device Prophylaxis: SCD's and Thigh High MARILEE Hose VTE Pharm Prophylaxis ordered?: Yes
--- NOTE | 2025-03-10 18:20 | RAD_ITS ---
PROCEDURE: HIP MIN 2 VIEWS (PORTABLE) 03/10/2025 REASON FOR EXAM: POST OP TECHNIQUE: Two views of the left hip COMPARISON: 03/09/2025 FINDINGS: Interval postoperative changes screw fixation left femoral head. Hardware is intact. No acute fracture or dislocation. No suspicious lytic or blastic lesion. Mild degenerative changes of the right hip. RAD/Hip Min 2 Views (Portable) IMPRESSION: See above Reading Location: [facility]
--- NOTE | 2025-03-10 19:18 | POSTOPAN2_ITS ---
Anesthesia Postop Eval I Sum Postop Eval Completion status Anesthesia document: Postop Eval 1 completed: Yes Anesthesia Postop Eval I Summary Anesthesia Postop Eval I Summary: Anesthesia Postop Eval I: Assessment Summary Airway patent Yes 03/10/25 16:12 GAS TRANSFER OPERATOR.[email or web address] Spontaneous unlabored Yes 03/10/25 16:12 GAS TRANSFER OPERATOR.YANDYOBKatiana respirations Mental status Awake,Calm 03/10/25 16:12 GAS TRANSFER OPERATOR.[email or web address] nausea No 03/10/25 16:12 GAS TRANSFER OPERATOR.[email or web address] Vomiting No 03/10/25 16:12 GAS TRANSFER OPERATOR.[email or web address] Anesthesia Postop Eval I: Fluid Summary Crystalloid volume administer 1,000 03/10/25 16:12 GAS TRANSFER OPERATOR.[email or web address] (ml) Colloids volume administered ( ml) Blood Product volume administered (ml) Total IV fluid infused 1,000 03/10/25 16:12 GAS TRANSFER OPERATOR.YANDYOBKatiana Anesthesia Postop Eval I: Summary Notes Anesthesia Complication No 03/10/25 16:12 GAS TRANSFER OPERATOR.YANDYOBKatiana Anesthesia Complication Comment: Post-operative progress note Anesthesia: Postop Eval II Evaluation Mental status: Awake and Calm Pain Level: 1 nausea: No Vomiting: No Complications Anesthesia Complication: No
--- NOTE | 2025-03-10 19:18 | PCM.POSTANE2 ---
Anesthesia Postop Eval I Sum Postop Eval Completion status Anesthesia document: Postop Eval 1 completed: Yes Anesthesia Postop Eval I Summary Anesthesia Postop Eval I Summary: Anesthesia Postop Eval I: Assessment Summary Airway patent Yes 03/10/25 16:12 TAX [email or web address] Spontaneous unlabored Yes 03/10/25 16:12 TAX MANAGER.YANDYOBKatiana respirations Mental status Awake,Calm 03/10/25 16:12 TAX MANAGER.[email or web address] nausea No 03/10/25 16:12 TAX MANAGER.[email or web address] Vomiting No 03/10/25 16:12 TAX MANAGER.[email or web address] Anesthesia Postop Eval I: Fluid Summary Crystalloid volume administer 1,000 03/10/25 16:12 TAX MANAGER.[email or web address] (ml) Colloids volume administered ( ml) Blood Product volume administered (ml) Total IV fluid infused 1,000 03/10/25 16:12 TAX MANAGER.YANDYOBKatiana Anesthesia Postop Eval I: Summary Notes Anesthesia Complication No 03/10/25 16:12 TAX MANAGER.YANDYOBKatiana Anesthesia Complication Comment: Post-operative progress note Anesthesia: Postop Eval II Evaluation Mental status: Awake and Calm Pain Level: 1 nausea: No Vomiting: No Complications Anesthesia Complication: No
[2025-03-10] MEDS: Ergocalciferol 1.25 MG (50, 000 UNIT) Capsule PO (19:48)
[2025-03-10] MEDS: Enoxaparin 40 MG/0.4 ML Syringe SC (19:48)
[2025-03-10] MEDS: Acetaminophen 500 MG Tablet 1000 MG PO (21:35)
[2025-03-10] MEDS: Senna/Docusate Sodium 1 Tablet 2 TABLET PO (21:35)
[2025-03-10] MEDS: Aspirin 81 MG TAB.CHEW PO (21:35)
[2025-03-10] MEDS: Cefazolin 1 GM/50 ML BAG IV (22:05)
[2025-03-11 01:35] VITALS: BP 109/44; PULSE 79; RESP 16; TEMP 36.7; O2SAT 95
[2025-03-11] MEDS: Acetaminophen 500 MG Tablet 1000 MG PO ×2 (05:33→14:38)
[2025-03-11 05:35] VITALS: BP 138/71; PULSE 84; RESP 16; TEMP 36.6; O2SAT 98
[2025-03-11] MEDS: Cefazolin 1 GM/50 ML BAG IV (06:40)
--- NOTE | 2025-03-11 06:50 | PN.ORTHO_ITS ---
Subjective Subjective The patient was sitting in bed upon examination. Patient denies any chest pain, shortness of breath, dizziness, lightheadedness, nausea or vomiting, or calf pain. Pain is controlled on medications. No adverse overnight events. Patient has catheter which they will be removing this morning. She has not been out of bed yet since surgery. Patient does not appear to be in any distress. Her pain has been controlled with Tylenol. Patient has not required any of the tramadol at this time. Patient denies past history of DVT or pulmonary embolism. Patient reports prior to the injury she was never using any ambulatory assistance. She lives at home with her . Her plan is to want to go home when ready. Care management team is on board. Objective Data Objective Data Vital Signs: Vital Signs Temp Pulse Resp BP Pulse Ox O2 Del Method O2 Flow Rate 98 F 84 16 138/71 H 98 Room Air 2 03/11/25 05:35 03/11/25 05:35 03/11/25 05:35 03/11/25 05:35 03/11/25 05:35 03/11/25 05:35 03/10/25 17:55 Oxygen Flow Rate (L/min) 2 Oxygen Delivery Method Room Air Weight: 74.5 kg Body Mass Index (BMI) 30.0 Intake & Output: Intake and Output for Last 24 Hours 03/09/25 03/10/25 03/11/25 23:59 23:59 23:59 Intake Total 150 / 150 1148.5 / 1148.5 Output Total 775 / 1325 1750 / 1750 Balance 150 / 150 373.5 / -176.5 -1750 / -1750 Lab / Micro Data 03/10/25 04:17 03/10/25 04:17 Labs: Laboratory Results - last 24 hr 03/10/25 04:17: Vitamin D 25-Hydroxy 24.4 L 03/10/25 08:18: POC Glucose 109 H Radiography Diagnostic Testing: Radiology Impression Hip X-Ray 03/10/25 15:15 IMPRESSION: Fluoroscopic images were used intraoperatively. Please refer to the operative note for further details. Reading Location: [facility] Hip X-Ray 03/10/25 18:20 IMPRESSION: See above Reading Location: COUNTS INCLUDE 234 BEDS AT THE [facility] Physical Exam Narrative Vital signs stable and afebrile. Left hip is soft and supple Patient is able to plantarflex and dorsiflex actively. Sensation is intact to light touch to saphenous, sural, superficial and deep peroneal, and tibial distribution. Dressing is clean dry and intact. Negative Homans bilaterally, negative signs and symptoms of DVT. Const alert, oriented x3 and no apparent distress Assessment & Plan Assessment/Plan (1) Subcapital fracture of left femur: PLAN: 1. S/P left hip closed reduction percutaneous pinning due to subcapital femoral neck fracture POD #1 2. Continue Pain Medications: Tylenol primarily with tramadol as needed for breakthrough pain 3. DVT Prophylaxis: Recommend aspirin 81 mg twice daily for 4 weeks postoperatively for DVT prophylaxis. Patient denies past history of DVT or pulmonary embolism 4. PT/OT: Weightbearing as tolerated with walker. Appreciate recommendations from physical therapy for appropriate and safe discharge planning. Patient does wish to try to go home when ready. May benefit from home health physical therapy 5. H & H: Currently no labs available to review today, asymptomatic. Vitals have been stable. She is in no distress. 6. Encouraged Incentive Spirometry 7. Patient is aware of postoperative constipation that can occur from 1-3 days postoperatively. Will continue with senna 2 tablets twice daily until first bowel movement. Patient was advised if not having a bowel movement after day 3 she is to contact orthopedics so appropriate change can be made. Patient voiced understanding. 8. Continue postoperative medical treatment per medicine 9. Disposition: Patient appears to be doing very well this morning from an orthopedic standpoint with regards to her pain. I would recommend we have physical therapy evaluate patient for appropriate and safe discharge planning. Patient does wish to try to go home if possible. Recommend probable home health physical therapy postoperatively. Patient's pain has been controlled so far on Tylenol. Recommend only using the tramadol as needed for breakthrough pain. Also recommend aspirin 81 mg twice daily for DVT prophylaxis for 4 weeks postoperatively with food. She denies past history of DVT or pulmonary embolism. Patient will continue with the MARILEE hose for 2 weeks postoperatively. She can remove these at nighttime but we do want these back on during the day. Patient can shower and get the dressing wet upon discharge. She is to remove it on postoperative day #5. After removal of the dressing it is okay for her to shower but only use gentle soap and water over the incision for 6 weeks postoperatively. Do not submerge underwater for 6 weeks. At this time orthopedics will sign off. We appreciate consultation. Okay for discharge when medically stable and physical therapy has assessed patient for discharge planning. Care management team currently on board for appropriate and safe discharge planning. Please contact orthopedics with any concerns or questions. Patient has been advised to contact our office upon discharge if she has any complications or concerns. She will need a 2-week follow-up with [facility] [place] for staple removal and follow-up x-rays. I have reviewed the [place] Automated Rx Reporting System (OARRS) report for this patient for refill pattern and other prescriber involvement as part of the appropriate surveillance for the provision of acute and chronic controlled medications. The report was requested and reviewed on the date of this entry and was considered in the prescribing process. This dictation was created using voice recognition software. Phonetic and/or grammatical errors may exist. (2) Fall:
[2025-03-11 08:00] VITALS: BP 125/60; PULSE 85; RESP 18; TEMP 37.1; O2SAT 98
[2025-03-11 08:06] LABS: Absolute Lymphocyte Count 0.96 X10^3/uL (0.83-4.51); Absolute Neutrophil Count 5.9 X10^3/uL (2.0-7.7); Basophil# 0.01 X10^3/uL; Basophil% 0.1 % (0-1); Hematocrit 41.1 % (37-47); Hemoglobin 13.3 g/dL (12.0-15.0); Lymphocyte # 0.96 X10^3/ul (0.83-4.51); Lymphocyte % 13.2 % (19-41); Mean Corp Hgb Conc 32.4 g/dL (32-36); Mean Corpuscular Hgb 30.9 pg (27.0-32.0); Mean Corpuscular Volume 95.6 fL (81-99); Mean Platelet Vol. 11.2 fl (6.2-12.0); Monocyte# 0.35 X10^3/uL; Monocyte% 4.8 % (0-10); NRBC Flagged by Analyzer 0 % (0-5); Neutrophil # 5.93 X10^3/uL (2.7-7.7); Neutrophil % 81.4 % (47-70); Platelet Count 209 K/mm3 (150-450); RBC Distribution Width CV 13.7 % (11.6-14.6); RBC Distribution Width SD 48.5 fl (35.1-43.9); White Blood Count 7.3 K/mm3 (4.4-11.0)
[2025-03-11 08:54] LABS: Anion Gap 15 (5-15); BUN 17 mg/dL (4-19); BUN/Creat Ratio 18.9 RATIO (10-20); Calcium,Total 9.8 mg/dL (7.6-11.0); Carbon Dioxide 21.7 mmol/L (21.0-32.0); Chloride 102 mmol/L (98-108); Creatinine, Serum 0.89 mg/dL (0.70-1.20); EST Glomerular Filtration Rate 66 (>60); Estimated Creatinine Clearance 49.23 ml/min (50-250); Glucose 133 mg/dL (70-99); Magnesium 2.2 mg/dL (1.5-2.2); Phosphorus 3.3 mg/dL (2.7-4.5); Potassium 4.5 mmol/L (3.3-5.1); Sodium Level 139 mmol/L (133-145)
[2025-03-11 09:00] VITALS: BP 125/60; PULSE 85; RESP 16; RESP 18; TEMP 37.1; O2SAT 98
[2025-03-11] MEDS: Famotidine 20 MG Tablet PO (09:52)
[2025-03-11] MEDS: Enoxaparin 40 MG/0.4 ML Syringe SC (09:52)
[2025-03-11] MEDS: Aspirin 81 MG TAB.CHEW PO (09:52)
[2025-03-11] MEDS: Senna/Docusate Sodium 1 Tablet 2 TABLET PO (09:53)
--- NOTE | 2025-03-11 12:32 | CASEMGMT ---
Discharge Planning A list of?HH providers including quality and resource use data and consistent with the patient's preferred geographic region, medical needs, and insurance network was created in [employer] Guide.? This list was provided to the RN LES. Elzbieta Parsons, Discharge Planning Asst.
[2025-03-11 14:00] VITALS: BP 148/71; PULSE 78; RESP 18; TEMP 37.1; O2SAT 98
--- NOTE | 2025-03-11 14:20 | CASEMGMT ---
Addendum entered by Amadeo Whatley 03/11/25 15:10: Per [facility], they are able to accept pt w/SOC slated for Friday. [employer] plan updated. Pt and made aware. Addendum entered by Amadeo Whatley 03/11/25 14:48: Pt and had questions about grab bars. Questions answered. Made aware pt's insurance does not cover for this item. Also made aware when therapy comes to her home they will evaluate and make recommendations. They voice understanding. Pt states she will be borrowing a shower chair and verifies she has a walker. She denies need for other DME. Per therapy, pt ambulated 200 ft today w/use of WW. Pt and deny having other discharge needs or concerns at this time. Original Note: TREY SALDANA NOTE: TREY SALDANA to room earlier today. Pt sitting up in chair, @ bedside. Introduced self and role. Discussed discharge. Pt wishes to discharge home and would like [facility]. Pt was provided w/list that was prepared by magnolia Ruff cement tester assistant. Pt's 1st choice is [facility] and 2nd is [facility]. Call placed to [facility] and referral made. Awaiting response. Eyad HERCULES RN, CM
--- NOTE | 2025-03-11 14:27 | CHAPLAIN ---
Type of Pastoral Visit ___ Initial Visit _x__ Follow-up Visit ___ On-call Visit ___ General Patient Visit ___ Spiritual Assessment ___ Family Conference ___ Bereavement ___ Rapid Response ___ Code Blue ___ Other (describe below) Pastoral Care Referral From _x__ Patient ___ Family ___ Nurse ___ Physician ___ Residential Nurse ___ Feeder Operator Automatic ___ Other (describe below) Sacrament/Intervention _x__ Active listening ___ Anointing ___ Uatsdin ___ Bereavement ___ Communion ___ [place] exploration ___ ___ Life review _x__ Prayer ___ Reconciliation ___ Sacrament of Sick _x__ Supportive presence ___ Wedding ___ Other (describe below) Pastoral Comments patient is thankful and excited about outcome of her surgery; pt expects to go home and start some home therapy there but has questions about handicap accessories for home; pt is encouraged to talk with SW about this; SUPERVISOR MAINTENANCE comes into the room and she stated that she will contact the SW for information; pt welcomes a prayer
--- NOTE | 2025-03-11 15:38 | PCM.DC.SUM ---
Providers Date of Admission: 03/09/25 Date of Discharge: 03/11/25 Primary Care Physician: Dr. Johnny Cazares, DO Consultations 03/09/25 20:35 Consult: Orthopedics Routine Consulting Provider: Robert Stevens Reason for Consult: hip fx EMERGENT Consult: No MD Notified: Yes Date Notified: 03/09/25 Time Notified: 19:47 Method of Notification: ED Physician Initiated Reason For Visit: LEFT FEMORAL NECK FX Diagnosis Discharge Diagnosis (1) Subcapital fracture of left femur: Status: Acute Code(s): S72.012A - Unspecified intracapsular fracture of left femur, initial encounter for closed fracture (2) Fall: Status: Acute Code(s): W19.XXXA - Unspecified fall, initial encounter Medications at Discharge Home Medications calcium 600 mg-D3 20 mcg-magnesium 50 mg-copper 1 ol-qkzk-dhjo tablet 1 tab PO BID 03/09/25 acetaminophen 500 mg tablet 1,000 mg (2 x 500 mg) PO Q8 #0 tabs 03/11/25 aspirin 81 mg chewable tablet 81 mg PO BID #0 tabs 03/11/25 ergocalciferol (vitamin D2) 1,250 mcg (50,000 unit) capsule (Vitamin D2) 1,250 mcg PO Q7D #7 caps 03/11/25 sennosides 8.6 mg-docusate sodium 50 mg tablet (Stimulant Laxative Plus) 2 tab PO BID #14 tabs 03/11/25 tramadol 50 mg tablet 50 mg PO Q6H PRN PRN Pain Score 4-10 #28 tabs 03/11/25 Hospital Course Summary of Care Provided Minutes Spent on Discharge: 36 Hospital Course: Patient is a 79-year-old female who presented to the emergency department from [facility] at the recommendation of her orthopedic surgeon. She evidently fell at the doctor's office on 03/01/2025 as an outpatient while she was walking. X-rays were obtained at the time due to hip pain but no acute fractures identified. She continued to have pain in the area and CT of the hip was performed last Friday. On Friday was read as a left femur fracture and she was referred to orthopedic surgery for evaluation. She was seen by orthopedic surgeon in the office on the day of presentation he instructed to come to the emergency department. Vital signs on presentation showed temperature of 97.6, heart rate 103, respiratory 18, blood pressure was initially 160/123 however when acuity decreased and pain was better controlled her blood pressure is better controlled. Pulse ox was 93 to 96% on room air. CBC was overtly unremarkable. Coags are normal. Chemistry panel is unremarkable. X-ray showed nondisplaced fracture of the left femoral neck. Plan was to take her to the OR later today for surgical intervention. She was taken to the OR on 03/10/2025 at which time a left subcapital femoral neck fracture was reduced and percutaneous pinning was performed. Postoperatively she was deemed to be weightbearing as tolerated with a walker. She is to be on aspirin 81 mg twice daily for 4 weeks for postoperative DVT prophylaxis and wear SCDs while she is awake. She may take them off at night. She may remove her dressing postop day 5 and then shower using gentle soap and water over the incision for 6 weeks postoperatively. She is not to submerge underwater for 6 weeks. Patient was seen by physical therapy postoperatively and did extremely well. She was able to be discharged home with home health care in stable condition on 03/11/2025. Tylenol was managing her pain predominantly and she was instructed to take it 1000 mg 3 times daily for at least 1 to 2 weeks postoperatively and then she can take it as needed. She was found to be vitamin D deficient with a vitamin D level less than 30 so she was started on ergocalciferol 50,000 units daily for 7 weeks and then should have a repeat level drawn. We also sent a low-dose Ultram home as needed with a 7-day supply at the time of discharge. She is to follow-up with Dr. Stevens in 2 weeks for postoperative evaluation and staple removal and x-rays. She is to follow-up with her primary care physician within the next 1 to 2 weeks after discharge. Discharge diagnoses: Left femoral neck fracture secondary to mechanical fall patient does not have diagnosis of osteoporosis Vitamin D deficiency Obesity Physical Exam Const alert, oriented x3, no apparent distress, no limitations, healthy appearing and well nourished; Negative for average body habitus Constitutional Narrative: Obese, elderly, white female, sitting up in a chair at the bedside, at bedside, appears comfortable, nontoxic, General Appearance: cooperative, comfortable, well kempt and well developed Nutritional Appearance: obese HEENT normocephalic, head/scalp atraumatic and moist oral mucous membranes HEENT Narrative: Mallampati 2, no thrush Eyes conjunctivae normal; Negative for EOMs intact bilaterally Eyes Narrative: Right eye deviation medially Resp normal respiratory effort, no retractions, no use of accessory muscles and clear to auscultation bilaterally Auscultation: Negative for rales, rhonchi or wheezes Cardio regular rate, regular rhythm, S1 normal heart sound, S2 normal heart sound, no murmurs, no rub, no gallops and no clicks GI normal to inspection, nondistended, normoactive bowel sounds, soft to palpation and non-tender Extremity no clubbing, cyanosis or edema Extremity Narrative: Pedal pulses are 2+, bilateral SCDs are in place Neuro oriented x3, moves all extremities and no focal motor deficits Speech: speech normal Psych affect normal Psych Narrative: Extremely pleasant, interacts appropriately Weight / BMI Weight Weight: 74.5 kg Body Mass Index (BMI) 30.0 ABG / Lab / Microbiology Data 03/11/25 06:20 03/11/25 06:20 Laboratory: Laboratory Results - last 24 hr 03/11/25 06:20: WBC 7.3, RBC 4.30, Hgb 13.3, Hct 41.1, MCV 95.6, MCH 30.9, MCHC 32.4, RDW Std Deviation 48.5 H, RDW Coeff of Kathy 13.7, Plt Count 209, MPV 11.2, Immature Gran % (Auto) 0.500, Neut % (Auto) 81.4 H, Lymph % (Auto) 13.2 L, Wilkin % (Auto) 4.8, Eos % (Auto) 0.0, Baso % (Auto) 0.1, Absolute Neuts (auto) 5.9, Absolute Lymphs (auto) 0.96, Nucleated RBC % 0, Sodium 139, Potassium 4.5, Chloride 102, Carbon Dioxide 21.7, Anion Gap 15, BUN 17, Creatinine 0.89, Estim Creat Clear Calc 49.23 L, Est GFR (MDRD) Non-Af 66, BUN/Creatinine Ratio 18.9, Glucose 133 H, Calcium 9.8, Phosphorus 3.3, Magnesium 2.2 Radiography Diagnostic Testing: Radiology Impression Hip X-Ray 03/10/25 15:15 IMPRESSION: Fluoroscopic images were used intraoperatively. Please refer to the operative note for further details. Reading Location: [facility] Hip X-Ray 03/10/25 18:20 IMPRESSION: See above Reading [facility] Instructions Discharge Diet: No restrictions Discharge Activity: Return to Normal Activity and Use Walker Weight Bearing Status: Weight bearing as tolerated (Left lower extremity) Call your doctor if your incision/area has: Continuous Slow Oozing, Sudden Increased Bleeding, Increased Pain/ Swelling, Increased Redness, Foul Smelling Discharge and Swelling at the incision site Remove Dressing in: 4 days Cleanse incision/area with: Soap & Water Additional Dressing/Incision Instructions: No submerging wound for 6 weeks okay to shower after dressing removed DC O2, CPAP, BIPAP Needs Home O2 Discharge instructions: No DC home with Oxygen: No Meaningful Use Info Meaningful Use Meaningful Use Diagnoses (Choose all that apply): None applicable Ischemic Stroke Statin Dosing Therapy Reference: STATIN DOSE THERAPY REFERENCE: * Patients > 75 years receive moderate or high dose statin therapy. * Patients 75 years or YOUNGER should receive HIGH intensity statin dose unless contraindicated. You will be required to document reason for non-treatment if statin daily dose does not meet guidelines. HIGH DOSE STATIN THERAPY DAILY Atorvastatin > than or = to 40 mg Rosuvastatin > than or = to 20 mg Amlodipine + Atorvastatin > than or = to 2.5/40 mg Ezetimibe + Simvastatin 10/80 mg Simvastatin 80mg Discharge Plan Admission Admit Date/Time: 03/09/25 19:45 Attending Provider: Eleanor Rodriguez Primary Care Provider: Johnny Cazares Consulting Providers: Robert Stevens; Rell Suarez Instructions Additional Instructions / Restrictions: 1. Pain control: Continue with Extra strength Tylenol 500 mg take 2 tablets 3 times daily. Do not take more than 3000 mg of Tylenol in a 24-hour period. Only use the tramadol for breakthrough pain 2. DVT prophylaxis: Recommend aspirin 81 mg twice daily for 4 weeks postoperatively with food for blood clot prevention. Continue with MARILEE hose for 2 weeks postoperatively. Okay to remove the MARILEE hose at nighttime but we do want the MARILEE hose back on during the day. 3. Stool softener: Continue with senna and take until first bowel movement, then as needed. If you have not had a bowel movement by March 14, 2025 you need to contact A[facility] Malin for further instructions: [phone] 3. Physical therapy: Weightbearing as tolerated with walker. 4. Shower instructions: Okay to shower with current dressing upon discharge. You will remove the dressing on Saturday, March 15, 2025. Once the dressing has been removed okay to still shower but only use gentle soap and water over the incision for 6 weeks postoperatively. [address] not place any topical ointments on the incision for 6 weeks. Do not submerge underwater such as a bath or hot tub for 6 weeks postoperatively. 5. Ice: Okay to ice the left thigh 15-20 minutes every 2 hours as needed. Please protect the skin with barrier and do not put the ice directly on bare skin. Discharge Orders/Prescriptions Prescriptions: New acetaminophen 500 mg Tablet 1,000 mg PO Q8 Qty: 0 0RF aspirin 81 mg Tablet,Chewable 81 mg PO BID Qty: 0 0RF ergocalciferol (vitamin D2) [Vitamin D2] 1,250 mcg (50,000 unit) Capsule 1,250 mcg PO Q7D Qty: 7 0RF tramadol 50 mg Tablet 50 mg PO Q6H PRN PRN (Reason: Pain Score 4-10) Qty: 28 0RF sennosides-docusate sodium [Stimulant Laxative Plus] 8.6-50 mg Tablet 2 tab PO BID Qty: 14 0RF Continued Ca carb-D3-mag xq-mhh-fzir-Zn 600 mg-20 mcg- 50 mg-1 mg tablet 1 tab PO BID Referrals / Follow Up: Johnny Cazares DO [Primary Care Provider] - Within 2 Weeks Robert Stevens MD [Med Staff - Active Staff] - Within 2 Weeks Disposition Disposition (needs filled in before D/C Order can be placed): Home Health Service Charges/Coding Visit Charges Inpatient E&M: 38464 Disch Hosp >30min
[2025-03-11 17:15] VITALS: BP 127/60; PULSE 79; RESP 18; TEMP 37; O2SAT 98
== END 2025-03-11 17:15 | disposition home health service (06) | DRG 482 ==
LOC: ED 18:14 → MS3 19:52
PROVIDERS: Specialist; Admitting Provider Family Medicine; Emergency Provider Emergency Medicine; PCP Student in an Organized Health Care Education/Training Program; Visit Provider Internal Medicine
PROC: 0QS734Z Reposition Left Upper Femur with Internal Fixation Device, Percutaneous Approach (ICD-10-PCS; principal; 2025-03-10 07:30)
DX: S72.012A Unspecified intracapsular fracture of left femur, initial encounter for closed fracture (principal); E55.9 Vitamin D deficiency, unspecified; Z66 Do not resuscitate; E66.9 Obesity, unspecified; W18.30XA Fall on same level, unspecified, initial encounter; Y92.531 Health care provider office as the place of occurrence of the external cause; Y93.01 Activity, walking, marching and hiking; Z68.30 Body mass index [BMI] 30.0-30.9, adult
CPT/HCPCS: 36415; 71045; 72170; 73502; 76000; 80048; 82306; 82652; 82962; 83735; 84100; 85025; 85610; 85730; 86850; 86900; 86901; 93005; 94668; 97162; 97166; 99284; C1713; A4216; J2405